=== PATIENT | female | born 1975 | race Caucasian/White ===

== ENCOUNTER → 2017-08-21 16:04 | Outpatient (REF) | payer OTHER, SELFPAY ==
[2017-08-21 18:04] LABS: Basophils # 0.1 K/mm3 (0-0.2); Basophils % 0.9 % (0.1-2.0); Eosinophils % 11.7 % (0.1-12.0); Hematocrit 44.5 % (37.0-47.0); Hemoglobin 13.6 g/dL (12.2-16.2); Lymphocytes # 2.8 K/mm3 (0.7-4.5); Lymphocytes % 32.3 K/mm3 (10-50); Mean Corpuscular HGB Conc 30.5 g/dL (31.8-35.4); Mean Corpuscular Hemoglobin 27.9 pg (27.0-31.2); Mean Corpuscular Volume 91.3 fl (81-99); Mean Platelet Volume 7.9 fl (7.4-10.4); Monocytes # 0.6 K/mm3 (0.1-1.0); Monocytes % 6.9 % (1.7-9.3); Neutrophils # 4.2 K/mm3 (1.8-7.8); Neutrophils % 48.2 % (37.0-80.0); Platelet Count 256 K/mm3 (142-424); Red Blood Count 4.87 M/mm3 (4.20-5.40); White Blood Count 8.7 K/mm3 (4.8-10.8)
[2017-08-21 18:26] LABS: Alanine Aminotransferase 33 U/L (12-78); Albumin/Globulin Ratio 1.1 (1.1-1.8); Alkaline Phosphatase 80 U/L (46-116); Anion Gap 15.8 mEq/L (5-15); Aspartate Amino Transferase 23 U/L (15-37); Bilirubin,Total 0.2 mg/dL (0.2-1.0); Blood Urea Nitrogen 14 mg/dL (7-18); Calcium 9.1 mg/dL (8.5-10.1); Carbon Dioxide 23 mmol/L (21.0-32.0); Chloride 104 mmol/L (98-107); Chol/HDL Ratio 4.2 (1-3.5); Cholesterol 256 mg/dL (140-200); Creatinine,Serum 1.11 mg/dL (0.55-1.02); Estimated Glomerular Filt Rate 54 ml/min (>60); Free T4 (Free Thyroxine) 0.48 ng/dl (0.76-1.46); GFR (African American) 66 ML/MIN (>60); Globulin 3.6 gm/dl (1.3-3.2); Glucose 109 mg/dL (74-106); HDL Cholesterol 61 mg/dL (29-89); LDL Cholesterol 144 mg/dL (0-130); Potassium 3.8 mmoL/L (3.5-5.1); Sodium 139 mmol/L (136-145); Thyroid Stimulating Hormone 31.85 uIU/ml (0.358-3.740); Total Protein,Serum 7.6 gm/dL (6.4-8.2); Triglycerides 254 mg/dL (30-200); VLDL Cholesterol 51 mg/dL (0-40)
[2017-08-23 21:15] LABS: Vitamin D 25 Hydroxy 23.9 ng/mL (30.0-100.0)
== END ==
LOC: LAB 16:04
PROVIDERS: Visit Provider Emergency Medicine
DX: R09.89 Other specified symptoms and signs involving the circulatory and respiratory systems (principal); R05 Cough; R53.83 Other fatigue
CPT/HCPCS: 80053; 80061; 82652; 84439; 84443; 85025